=== PATIENT | male | born 1940 | race Caucasian/White ===

== ENCOUNTER 2017-07-30 22:47 | Emergency (ER) | payer MEDICARE, BC ==
[2017-07-30] MEDS: Ketorolac 60 MG/2 ML SDV IM ONE (23:34)
--- NOTE | 2017-07-30 23:42 | EDM.PDOC ---
ED HPI GENERAL MEDICAL PROBLEM - General Chief Complaint: Abdominal Pain Stated Complaint: Stomach pain, [id number] Time Seen by Provider: 07/30/17 23:21 Source of Information: Reports: Patient, Family () History Limitations: Reports: No Limitations - History of Present Illness INITIAL COMMENTS - FREE TEXT/NARRATIVE: Patient presents with abdominal bloating and pain as well as diarrhea. This started 5 days ago while he and his were returning from [place]. She had similar symptoms but cleared up after a couple days. Chad has worsened. He is passing a lot of gas and some diarrhea he says. He says he bloats up every time he eats no matter what he eats. Tonight he was feeling better until he ate clam chowder for supper then he bloated back up. He belches quite a bit too but for some reason he seems to be producing gas faster than he can get rid of it. He saw his PCP two days ago and says labs and everything was normal. He was planning to go back tomorrow morning but tonight when he lay down in bed the pain was too much so he came in to ER. His thinks he was told he has a hiatal hernia years ago but they are not sure. He had appendix removed and had an umbilical hernia repaired with mesh in 1996. Abdomen Pain Score (Numeric/FACES): 8 - Related Data Allergies Allergy/AdvReac Type Severity Reaction Status Date / Time codeine Allergy Cannot Verified 07/30/17 23:12 Remember prednisone Allergy Edema Verified 07/30/17 23:12 Home Meds: Home Meds Diltiazem HCl [Diltiazem 24Hr ER] 120 mg PO DAILY 07/30/17 [History] Doxazosin Mesylate 2 mg PO DAILY 07/30/17 [History] Fluticasone/Salmeterol [Advair 250-50 Diskus] 1 puff INH DAILY 07/30/17 [History ] Omeprazole 20 mg PO BID PRN 07/30/17 [History] Simvastatin [Zocor] 20 mg PO DAILY 07/30/17 [History] Triamt/Hctz 75 mg PO DAILY 07/30/17 [History] metFORMIN HCl [Metformin HCl ER] 500 mg PO DAILY 07/30/17 [History] ED ROS GENERAL - Review of Systems Review Of Systems: See Below Constitutional: Denies: Fever, Chills, Weakness, Diaphoresis HEENT: Denies: Throat Pain Respiratory: Denies: Shortness of Breath, Cough Cardiovascular: Denies: Chest Pain, Lightheadedness, Syncope Endocrine: Reports: No Symptoms GI/Abdominal: Reports: Abdominal Pain, Diarrhea, Distension, Nausea. Denies: Black Stool, Bloody Stool, Vomiting : Denies: Dysuria, Flank Pain Musculoskeletal: Reports: No Symptoms Skin: Denies: Cyanosis, Jaundice, Mottled, Pallor, Diaphoresis Neurological: Denies: Confusion, Seizure, Syncope, Trouble Speaking, Difficulty Walking Psychiatric: Denies: Agitation, Anxiety, Confusion ED EXAM, GI/ABD - Physical Exam Exam: See Below Exam Limited By: No Limitations General Appearance: Alert, WD/WN, No Apparent Distress Eyes: Bilateral: Normal Appearance, EOMI Ears: Normal External Exam, Hearing Grossly Normal Nose: Normal Inspection, No Blood Throat/Mouth: Normal Inspection, Normal Lips, Normal Voice, No Airway Compromise Head: Atraumatic, Normocephalic Neck: Full Range of Motion Respiratory/Chest: No Respiratory Distress, Lungs Clear, Normal Breath Sounds, No Accessory Muscle Use Cardiovascular: Regular Rate, Rhythm, No Murmur GI/Abdominal Exam: Normal Bowel Sounds, Distended (quite significantly), Tender (general). No: Rigid (It doesn't feel rigid, just tightly distended), Hernia Back Exam: No: CVA Tenderness (L), CVA Tenderness (R) Extremities: Normal Inspection, Normal Range of Motion, Non-Tender Neurological: Alert, Oriented, Normal Cognition, No Motor/Sensory Deficits Psychiatric: Normal Affect, Normal Mood Skin Exam: Warm, Dry, Intact, Normal Color, No Rash Course - Vital Signs Last Recorded V/S: Last Vital Signs Temp 97.5 F 07/30/17 23:09 Pulse 76 07/30/17 23:09 Resp 16 07/30/17 23:09 BP 164/85 H 07/30/17 23:09 Pulse Ox 94 L 07/30/17 23:09 - Orders/Labs/Meds Orders: Active Orders 24 hr Category Date Time Status Abdomen 2V AP Upright Decub [CR] Stat Exams 07/30/17 23:05 Ordered Labs: Laboratory Tests 07/30/17 07/31/17 Range/Units 00:05 00:05 WBC 6.4 (5.0-10.0) 10^3/uL RBC 4.83 (4.50-6.00) 10^6/uL Hgb 15.0 (13.0-17.0) g/dL Hct 44.8 (40.0-52.0) % MCV 92.8 H (82.0-92.0) fL MCH 31.1 H (27.0-31.0) pg MCHC 33.5 (32.0-36.0) g/dL RDW 13.2 (11.5-14.5) % Plt Count 215 (150-300) 10^3/uL MPV 6.7 L (7.4-10.4) fL Neut % (Auto) 73.1 H (50.0-70.0) % Lymph % (Auto) 14.7 L (20.0-40.0) % [place] % (Auto) 9.3 H (2.0-8.0) % Eos % (Auto) 2.2 (1.0-3.0) % Baso % (Auto) 0.7 (0.0-1.0) % Neut # (Auto) 4.8 (2.5-7.0) 10^3/uL Lymph # (Auto) 0.9 L (1.0-4.0) 10^3/uL [place] # (Auto) 0.6 (0.1-0.8) 10^3/uL Eos # (Auto) 0.1 (0.1-0.3) 10^3/uL Baso # (Auto) 0.0 (0.0-0.1) 10^3/uL Sodium 142 (136-145) mmol/L Potassium 3.5 (3.3-5.3) mmol/L Chloride 102 (98-115) mmol/L Carbon Dioxide 31.1 (21.0-32.0) mmol/L BUN 15 (6-25) mg/dL Creatinine 1.05 (0.51-1.17) mg/dL Est Cr Clr Drug Dosing 61.75 mL/min Estimated GFR (MDRD) > 60 mL/min Glucose 156 H (70-110) mg/dL Calcium 8.5 L (8.7-10.3) mg/dL Total Bilirubin 0.4 (0.2-1.0) mg/dL AST 19 (15-37) U/L ALT 27 (12-78) U/L Alkaline Phosphatase 58 (46-116) IU/L Total Protein 6.4 (6.4-8.2) g/dL Albumin 3.27 (3.00-4.80) g/dL Lipase 71 L (73-393) U/L Meds: Medications Discontinued Medications Generic Name Dose Route Start Last Admin Trade Name Palmerq PRN Reason Stop Dose Admin Ketorolac Tromethamine 60 mg 07/30/17 23:28 07/30/17 23:34 Toradol IM 07/30/17 23:29 60 mg ONETIME ONE Administration - Re-Assessments/Exams Free Text/Narrative Re-Assessment/Exam: 07/31/17 00:36 Abdominal films show a small bowel obstruction per radiologist. Patient rates pain down from 8/10 to 4-5 after the Toradol given soon after arrival. Discussed xray findings with patient and will discuss with surgeon. He wants [facility] in [place] if he needs to transfer somewhere. I discussed case with Gen Surg Dr. Truong and hospitalist Dr. Brush who accepted for transfer and management. Patient is stable and can go by private vehicle. Daughter will be driving him up to [place]. Departure - Departure Time of Disposition: 00:35 Disposition: DC/Tfer to Acute Hospital 02 Condition: Good Clinical Impression: SBO (small bowel obstruction), Gastroenteritis, Abdominal bloating - Discharge Information Forms: ED Department Discharge - My Orders Last 24 Hours: My Active Orders 07/30/17 23:05 Abdomen 2V AP Upright Decub [CR] Stat - Assessment/Plan Last 24 Hours: My Active Orders 07/30/17 23:05 Abdomen 2V AP Upright Decub [CR] Stat
[2017-07-31 00:36] LABS: CHLORIDE,CL 102 mmol/L (98-115); SODIUM,NA 142 mmol/L (136-145)
== END 2017-07-31 00:55 ==
LOC: KA.ED 22:47
DX: K52.9 Noninfective gastroenteritis and colitis, unspecified (principal); K56.609 Unspecified intestinal obstruction, unspecified as to partial versus complete obstruction; Z88.5 Allergy status to narcotic agent; Z79.84 Long term (current) use of oral hypoglycemic drugs; Z79.899 Other long term (current) drug therapy
CPT/HCPCS: 36415; 74021; 80053; 83690; 85025; 96372; 99284; J1885

== ENCOUNTER 2020-09-04 07:45 | Emergency (ER) | payer MEDICARE, BC ==
--- NOTE | 2020-09-04 08:32 | CR ---
[id number] RAD/RAD Ribs Left W PA Chest Exam: RAD Ribs Left W PA Chest Clinical Data: TRAUMA COMPARISON: NO PREVIOUS SIMILAR EXAM IS AVAILABLE FINDINGS: There appear to be a subtle fractures of the lateral left eighth and 10th ribs There is an old fracture deformity of the posterior left fifth rib There are surgical changes of the left shoulder The lungs are clear The cardiac silhouette is moderately enlarged There is no pneumothorax IMPRESSION: OLD AND MORE RECENT LEFT-SIDED RIB FRACTURES Diony Hong MD 09/04/20 0831 Thank you for allowing us to participate in the care of your patient.
[2020-09-04] MEDS: Ketorolac 30 MG/ML SDV IM ONE (09:03)
--- NOTE | 2020-09-04 09:07 | EDM.PDOC ---
ED HPI GENERAL MEDICAL PROBLEM - General Chief Complaint: General Stated Complaint: BACK PAIN Time Seen by Provider: 09/04/20 08:10 Source of Information: Reports: Patient, Family () History Limitations: Reports: No Limitations - History of Present Illness INITIAL COMMENTS - FREE TEXT/NARRATIVE: 80-year-old male presents to the emergency room with complaints of left posteri or rib pain. Patient points the area of the lower rib cage source of pain and tenderness. He was using the skid steer 48 hours ago when he actually got out of it and walked back into the corner of the bucket hitting his left lower posterior rib cage. Has had persistent pain discomfort in that area. He denies shortness of breath or difficulty breathing. He does though complain if he takes a deep breath and increases his pain and discomfort over the area of trauma. He has had previous rib fractures in the past when [place] slipped [place]. Other than chronic constipation issues he is really not having any other discomfort. Tried some Tylenol for the discomfort. He is otherwise fairly healthy 80-year-old an active gentleman. He does take a couple high blood pressure medications, Metformin for his diabetes, omeprazole for reflux, and medication for high cholesterol as well as BPH. Followed by Treva Castro at the [facility]. 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 Left Posterior Chest Pain Score (Numeric/FACES): 9 - Related Data Allergies Allergy/AdvReac Type Severity Reaction Status Date / Time codeine Allergy Cannot Verified 09/04/20 08:01 Remember prednisone Allergy Edema Verified 09/04/20 08:01 Home Meds: Home Meds Doxazosin Mesylate 2 mg PO DAILY 07/30/17 [History] Fluticasone Propion/Salmeterol [Advair 250-50 Diskus] 1 puff INH DAILY 07/30/17 [History] Omeprazole 20 mg PO DAILY PRN 07/30/17 [History] metFORMIN HCl [Metformin HCl ER] 1,000 mg PO DAILY 07/30/17 [History] Aspirin [Halfprin] 81 mg PO DAILY 09/04/20 [History] Cholecalciferol (Vitamin D3) [Vitamin D3] 25 mcg PO DAILY 09/04/20 [History] Ketorolac [Toradol] 10 mg PO TID PRN #15 tab 09/04/20 [Rx] Rosuvastatin Calcium [Crestor] 40 mg PO DAILY 09/04/20 [History] Triamterene/Hydrochlorothiazid [Triamterene-HCTZ 75-50 MG] 1 tab PO DAILY 09/04/20 [History] lisinopriL [Lisinopril] 2.5 mg PO DAILY 09/04/20 [History] traMADol [Ultram] 50 mg PO Q6H PRN #30 tab 09/04/20 [Rx] Past Medical History HEENT History: Reports: Cataract, Hard of Hearing Cardiovascular History: Reports: High Cholesterol, Hypertension Respiratory History: Reports: COPD Gastrointestinal History: Reports: PUD Musculoskeletal History: Reports: Arthritis Endocrine/Metabolic History: Reports: Diabetes, Type II, Obesity/BMI 30+ Oncologic (Cancer) History: Reports: Basal Cell Carcinoma Dermatologic History: Reports: Eczema, Other (See Below) Other Dermatologic History: basal cancer on nose. - Past Surgical History HEENT Surgical History: Reports: Cataract Surgery Cardiovascular Surgical History: Reports: None Respiratory Surgical History: Reports: None Other Respiratory Surgeries/Procedures: uses nebulizer prn,. on Advair diskus GI Surgical History: Reports: Appendectomy, Colonoscopy, EGD, Hernia, Abdominal Endocrine Surgical History: Reports: None Musculoskeletal Surgical History: Reports: Knee Replacement, Shoulder Surgery Other Musculoskeletal Surgeries/Procedures:: bilateral knee replacements and rotator cuff repain bilateral shoulders. Social & Family History - Family History Family Medical History: No Pertinent Family History - Tobacco Use Tobacco Use Status *Q: Former Tobacco User Used Tobacco, but Quit: Yes Month/Year Tobacco Last Used: quit 32 yrs ago - Caffeine Use Caffeine Use: Reports: Soda, Tea Caffeine Use Comment: one cup of tea a day - Recreational Drug Use Recreational Drug Use: No ED ROS GENERAL - Review of Systems Review Of Systems: See Below Constitutional: Reports: No Symptoms HEENT: Reports: Glasses Respiratory: Reports: No Symptoms Cardiovascular: Reports: No Symptoms Endocrine: Reports: High Glucose GI/Abdominal: Reports: Constipation : Reports: No Symptoms Musculoskeletal: Reports: Other (Rib pain posterior) Skin: Reports: No Symptoms Neurological: Reports: No Symptoms Psychiatric: Reports: No Symptoms Hematologic/Lymphatic: Reports: No Symptoms Immunologic: Reports: No Symptoms ED EXAM, GENERAL - Physical Exam Exam: See Below Exam Limited By: No Limitations General Appearance: Alert, WD/WN, No Apparent Distress Eye Exam: Bilateral Eye: EOMI, Other (eye glasses) Ears: Hearing Grossly Normal Throat/Mouth: Normal Voice, No Airway Compromise Head: Atraumatic Neck: Normal Inspection Respiratory/Chest: No Respiratory Distress, Lungs Clear, Normal Breath Sounds, Chest Non-Tender (Left lower posterior ribs) Cardiovascular: Regular Rate, Rhythm GI/Abdominal: Soft Back Exam: CVA Tenderness (L). No: Vertebral Tenderness Extremities: Normal Inspection Neurological: Alert, Oriented, No Motor/Sensory Deficits Psychiatric: Normal Affect, Normal Mood Skin Exam: Warm, Dry, Intact, Normal Color, No Rash Course - Vital Signs Last Recorded V/S: Last Vital Signs Temp 97.0 F 09/04/20 07:51 Pulse 57 L 09/04/20 08:00 Resp 18 09/04/20 08:00 BP 117/65 09/04/20 08:00 Pulse Ox 96 09/04/20 08:00 - Orders/Labs/Meds Meds: Medications Discontinued Medications Generic Name Dose Route Start Last Admin Trade Name Freq PRN Reason Stop Dose Admin Ketorolac Tromethamine 30 mg 09/04/20 08:49 Ketorolac 30 Mg/Ml Sdv IM 09/04/20 08:50 ONETIME ONE - Radiology Interpretation Free Text/Narrative:: Chest x-ray, left ribs Findings: There appeared to be a subtle fractures of the lateral left eighth and 10th ribs. There is an old fracture deformity of the posterior left fifth rib. There are surgical changes of the left shoulder. The lungs are clear. The cardiac silhouette is moderately enlarged. There is no pneumothorax. Impression: Old and more recent left-sided rib fractures Departure - Departure Time of Disposition: 09:15 Disposition: Home, Self-Care 01 Condition: Good Clinical Impression: Closed rib fracture Qualifiers: Encounter type: initial encounter Rib fracture type: multiple ribs Laterality: left Qualified Code(s): S22.42XA - Multiple fractures of ribs, left side, initial encounter for closed fracture - Discharge Information Prescriptions: Ketorolac [Toradol] 10 mg PO TID PRN #15 tab PRN Reason: Pain traMADol [Ultram] 50 mg PO Q6H PRN #30 tab PRN Reason: Pain Instructions: Rib Fracture, Rib Contusion Referrals: Treva Castro NP [Primary Care Provider] - Forms: ED Department Discharge Additional Instructions: 1. Rest. 2. Toradol 10 mg TID prn #15 dispense 3. Ultram 50 mg every 6 hours as needed for pain #30 dispensed 4. Spirometry 10 times an hour while awake. 5. Follow-up with your primary care in 1 week if symptoms are not improving. Return to the emergency room if any difficulty breathing or increased shortness of breath occurs. Sepsis Event Note (ED) - Evaluation Sepsis Screening Result: No Definite Risk - Focused Exam Vital Signs: Vital Signs Temp Pulse Resp BP Pulse Ox 09/04/20 08:00 57 L 18 117/65 96 09/04/20 07:51 97.0 F 57 L 18 121/68 96 - Assessment/Plan Assessment:: Left eighth and 10th subtle rib fractures Old left fifth rib fracture Plan: 1. Rest. 2. Toradol 10 mg TID prn #15 dispense 3. Ultram 50 mg every 6 hours as needed for pain #30 dispensed 4. Spirometry 10 times an hour while awake. 5. Follow-up with your primary care in 1 week if symptoms are not improving. Return to the emergency room if any difficulty breathing or increased shortness of breath occurs.
== END 2020-09-04 09:20 | disposition home or self-care (01) ==
LOC: KA.ED 07:45
DX: S22.42XA Multiple fractures of ribs, left side, initial encounter for closed fracture (principal); E78.00 Pure hypercholesterolemia, unspecified; I10 Essential (primary) hypertension; E11.9 Type 2 diabetes mellitus without complications; E66.9 Obesity, unspecified; Z88.5 Allergy status to narcotic agent; Z88.8 Allergy status to other drugs, medicaments and biological substances; Z68.30 Body mass index [BMI] 30.0-30.9, adult; Z87.891 Personal history of nicotine dependence; Z79.82 Long term (current) use of aspirin; Z79.899 Other long term (current) drug therapy; W22.8XXA Striking against or struck by other objects, initial encounter
CPT/HCPCS: 71101-LT; 96372; 99283; 99283-25; J1885

== ENCOUNTER 2024-11-10 19:27 | Emergency (ER) | payer MEDICARE, BC ==
[2024-11-10 19:55] LABS: BASOPHILS ABSOLUTE AUTO 0.03 10^3/uL (0.00-0.10); BASOPHILS PERCENT AUTO 0.6 % (0.0-1.0); EOSINOPHILS ABSOLUTE AUTO 0.31 10^3/uL (0.10-0.30); EOSINOPHILS PERCENT AUTO 5.7 % (1.0-3.0); IMMATURE GRAN ABSOLUTE AUTO 0.01 10^3/uL (0.00-0.04); IMMATURE GRAN PERCENT AUTO 0.2 % (0.0-0.4); LYMPHOCYTES ABSOLUTE AUTO 1.13 10^3/uL (1.00-4.00); LYMPHOCYTES PERCENT AUTO 20.9 % (20.0-40.0); MEAN PLATELET VOLUME 8.7 fL (7.4-10.4); MONOCYTES ABSOLUTE AUTO 0.56 10^3/uL (0.10-0.80); MONOCYTES PERCENT AUTO 10.4 % (2.0-8.0); NEUTROPHILS ABSOLUTE AUTO 3.37 10^3/uL (2.50-7.00); NEUTROPHILS PERCENT AUTO 62.2 % (50.0-70.0); PLATELET COUNT,PLT 181 10^3/uL (150-400); RED BLOOD CELL COUNT 3.13 10^6/uL (4.50-6.00); RED CELL DISTRIBUTION WIDTH 14.6 % (11.5-14.5); WHITE BLOOD CELL COUNT,WBC 5.41 10^3/uL (5.00-10.00)
[2024-11-10 20:11] LABS: ALANINE AMINOTRANSFERASE,ALT 20.0 U/L (14-63); ASPARTATE AMNIOTRANSFERASE,AST 25.0 U/L (15-37); BILIRUBIN TOTAL 0.4 mg/dL (0.2-1.0); BLOOD UREA NITROGEN,BUN 21.0 mg/dL (7-18); CARBON DIOXIDE,CO2 31.8 mmol/L (21.0-32.0); CHLORIDE,CL 104.0 mmol/L (98-107); CREATININE 0.99 mg/dL (0.51-1.17); EST CRCL DRUG DOSING (CG) 56.33 mL/min; GLUCOSE RANDOM 152.0 mg/dL (70-140); POTASSIUM,K 4.1 mmol/L (3.5-5.1); PROTEIN TOTAL,TP 6.3 g/dL (6.4-8.2); SODIUM,NA 141.0 mmol/L (136-145)
[2024-11-10 20:12] LABS: ESTIMATED GFR 75.0 mL/min (>=60)
== END 2024-11-10 20:43 ==
LOC: KA.ED 19:27
DX: R22.31 Localized swelling, mass and lump, right upper limb (principal); R79.89 Other specified abnormal findings of blood chemistry; E78.00 Pure hypercholesterolemia, unspecified; I10 Essential (primary) hypertension; E11.9 Type 2 diabetes mellitus without complications; J44.9 Chronic obstructive pulmonary disease, unspecified; Z88.5 Allergy status to narcotic agent; Z88.8 Allergy status to other drugs, medicaments and biological substances; Z79.899 Other long term (current) drug therapy; Z79.84 Long term (current) use of oral hypoglycemic drugs
CPT/HCPCS: 36415; 80053; 85025; 85379; 99284